=== PATIENT | male | born 1985 | race Caucasian/White ===

== ENCOUNTER 2019-11-14 23:15 | Emergency (ER) | payer OTHER ==
[~2019-11-14] VITALS: Ht 167.6 cm; Wt 93.0 kg
[2019-11-15 01:52] VITALS: BP 120/88
== END 2019-11-15 01:52 | disposition home or self-care (01) ==
LOC: ER 23:15
DX: S09.90XA Unspecified injury of head, initial encounter (principal); H53.2 Diplopia; R05 Cough; R06.02 Shortness of breath; J45.909 Unspecified asthma, uncomplicated; F17.210 Nicotine dependence, cigarettes, uncomplicated; W20.8XXA Other cause of strike by thrown, projected or falling object, initial encounter; Y93.89 Activity, other specified; Y92.098 Other place in other non-institutional residence as the place of occurrence of the external cause; Y99.8 Other external cause status